=== PATIENT | female | born 1985 | race Two or more races ===

== ENCOUNTER → 2025-06-28 | Outpatient (CLI) | payer MEDICAID, SELFPAY ==
--- NOTE | 2025-06-28 14:30 | XR_ITS ---
EXAMINATION: Thyroid sonography TECHNIQUE: Grayscale sonographic images thyroid lobes Date and time: June 28, 2025, 1453 hours, comparison January 10, 2024 INDICATIONS: Thyroid nodules on ultrasound January 10, 2024 FINDINGS: Right thyroid 5.4 cm Upper pole nodule 7 x 6 mm Midpole nodule 14 x 13 mm Lower pole nodule 20 x 17 mm Left thyroid 4.8 cm Upper pole nodule 8 x 6 mm IMPRESSION: Thyroid nodules as above Consider continued 6-month follow-up thyroid sonography
== END | disposition home or self-care (01) ==
LOC: CDIM 14:05
PROVIDERS: PCP Family Medicine; Referring Provider Family Medicine; Visit Provider Family Medicine
DX: E04.2 Nontoxic multinodular goiter (principal)
CPT/HCPCS: 76536